=== PATIENT | male | born 1945 | race Caucasian/White ===

== ENCOUNTER 2016-12-16 07:00 | Inpatient (IN) | payer MEDICARE ==
[~2016-12-16] VITALS: Ht 170.2 cm; Wt 95.4 kg
[2017-02-07 15:04] VITALS: BMI 32.5
[2017-02-10] VITALS (25 sets, daily range): BP systolic 122–172; BP diastolic 55–87; PULSE 70–96; RESP 14–23; Ht 170.2 cm; Wt 95.4 kg
[2017-02-10] MEDS ORDERED: CEFAZOLIN 2 GM/50 ML (PMX) 50 ML IVPB SCH (06:30)
[2017-02-10 06:31] LABS: INR 1.01; PROTIME 13.3 Sec (12.2-14.2)
[2017-02-10 06:43] LABS: PARTIAL THROMBOPLASTIN TIME 23.8 Sec (25.0-35.0)
[2017-02-10] MEDS ORDERED: LIDOCAINE 2% (SDV) 5 ML INJ ONE (06:59)
[2017-02-10] MEDS ORDERED: MEPERIDINE 100 MG INJ ONE (06:59)
[2017-02-10] MEDS ORDERED: NEOSTIGMINE 3 MG/3 ML SYRINGE ONE ×2 (06:59→08:26)
[2017-02-10] MEDS ORDERED: SUCCINYLCHOLINE CHLORIDE 100 MG/5 ML SYG IV ONE (06:59)
[2017-02-10] MEDS ORDERED: PROPOFOL 20 ML ONE (06:59)
[2017-02-10] MEDS ORDERED: GLYCOPYRROLATE 0.4 MG INJ ONE ×3 (06:59→08:26)
[2017-02-10] MEDS ORDERED: ROCURONIUM 50 MG INJ ONE ×2 (06:59→08:26)
--- NOTE | 2017-02-10 07:02 | HPN ---
Date/Time of Note Date/Time of Note DATE: 02/10/17 TIME: 07:01 Interval H&P Admission Note Pt. seen H&P reviewed: No system changes CLAY LOZADA MD Feb 10, 2017 07:02
[2017-02-10] MEDS ORDERED: POLYMYXIN/BACITRACIN 1L IRRIG ONE (07:08)
[2017-02-10] MEDS ORDERED: BUPIVACAINE 0.25% (MPF) 10 ML 10 ML VIAL ONE (07:08)
[2017-02-10] MEDS ORDERED: THROMBIN 5000 UNIT VIAL ONE (07:08)
[2017-02-10] MEDS ORDERED: GELATIN SIZE 100 SPONGE ONE (07:08)
[2017-02-10] MEDS ORDERED: LANTUS (07:12)
[2017-02-10] MEDS ORDERED: APIX5TAB PO (07:12)
[2017-02-10] MEDS ORDERED: METO-429 PO (07:12)
[2017-02-10] MEDS ORDERED: AMLO-147 PO (07:12)
[2017-02-10] MEDS ORDERED: WARF4TAB52 PO (07:12)
[2017-02-10] MEDS ORDERED: METF1000 PO (07:12)
[2017-02-10] MEDS ORDERED: LISI20TA11 PO (07:12)
[2017-02-10] MEDS: LACTATED RINGER'S 1,000 ML IV SCH (07:19)
[2017-02-10] MEDS ORDERED: EPHEDrine SULFATE 50 MG/5 ML SYG ONE (07:41)
[2017-02-10] MEDS ORDERED: ONDANSETRON 4 MG INJ ONE (07:41)
[2017-02-10] MEDS ORDERED: MINERAL OIL LIGHT 10 ML VIAL ONE (08:20)
[2017-02-10] MEDS ORDERED: MEPERIDINE 25 MG INJ IV PRN (08:30)
[2017-02-10] MEDS ORDERED: FENTAnyl 50 MCG/ML VIAL IV PRN ×3 (08:30)
[2017-02-10] MEDS ORDERED: EPHEDrine SULFATE 50 MG/5 ML SYG IV PRN (08:30)
[2017-02-10] MEDS ORDERED: DIPHENHYDRAMINE 50 MG INJ IV PRN (08:30)
[2017-02-10] MEDS ORDERED: ONDANSETRON 4 MG INJ IV PRN ×2 (08:30→11:00)
[2017-02-10] MEDS ORDERED: MIDAZOLAM 1 MG/ML 2 ML INJ IV PRN (08:30)
[2017-02-10] MEDS ORDERED: HYDROmorphONE (0.2 MG/ML) 10ML SYG IV PRN ×2 (08:30)
[2017-02-10] MEDS ORDERED: OXYCODONE/ACETAMINOPHEN (5/325) TAB PO PRN ×2 (08:30)
[2017-02-10] MEDS ORDERED: METOCLOPRAMIDE 10 MG INJ IV PRN (08:30)
[2017-02-10] MEDS ORDERED: LABETALOL HCL 20MG INJ IV PRN (08:30)
--- NOTE | 2017-02-10 09:23 | RADRPT ---
PROCEDURE: Lumbar spine x-ray CLINICAL INDICATION: Lumbar laminectomy TECHNIQUE: A single lateral view of the lumbar spine was obtained. COMPARISON: None FINDINGS: There is normal osseous mineralization. Localizing needles are identified at the L3-4 and L5-S1 disk spaces posteriorly. There is no evidence of acute fracture. Disk spaces are preserved in the lumbar spine. There is 5 mm of anterolisthesis of L5 with respect S1 with narrowing of the L5-S1 neural foramina. IMPRESSION: 5 mm of anterolisthesis of L5 with respect to S1. Posterior localizing needles at L3-4 and L5-S1. Physician Pam Date Time Electronically viewed and signed by Physician Pam on 02/10/2017 09:22 RA/
--- NOTE | 2017-02-10 09:25 | RADRPT ---
PROCEDURE: Lumbar spine radiograph CLINICAL INDICATION: Lumbar laminectomy TECHNIQUE: A single lateral view of the lumbar spine was obtained. COMPARISON: Lumbar spine radiograph from 02/10/2017 at 07:44 hours FINDINGS: The patient is noted to be status post interval laminectomy at L3 - L5 with adjacent postsurgical ch anges including packing material. There is stable anterolisthesis of L5 with respect to S1 with narrowing of the L5-S1 neural foramina . There is normal osseous mineralization. There is no evidence of an acute fracture. IMPRESSION: Status post interval laminectomy at L3 - L5 with postsurgical changes. Stable anterolisthesis of L5 with respect to S1. Physician Pam Date Time Electronically viewed and signed by Physician Pam on 02/10/2017 09:25 /
[2017-02-10] MEDS ORDERED: NALOXONE (0.4 MG/ML) INJ ONE (10:33)
--- NOTE | 2017-02-10 10:57 | OPR ---
Date/Time of Note Date/Time of Note DATE: 02/10/17 TIME: 10:53 Operative Report Preoperative Diagnosis Lumbar spinal stenosis at L2-L3-L4 and L5 Herniated disc L4-5 on the right with extruded disc fragments Postoperative Diagnosis Same Operation/Procedure Performed Central decompressive laminectomy at L5 Central decompressive laminectomy at L4 Central decompressive laminectomy at L3 Central decompressive laminectomy at L2 Microdiscectomy L4-5 on the right Medial facetectomy and foraminotomy at L2-3 L3-4 L4-5 and L5-S1 bilaterally Cosmetic wound closure (14 cm) Lateral localizing lumbar radiographs (2) Intraoperative nerve monitoring (3.5 hours) Surgeon: CLAY LOZADA MD cashier assistant: LISSETT GILBERT Anesthesia Type: general Estimated Blood Loss: 150 - 200 ml's Transfusion Required: no Specimens Spinous processes of L2-L3-L4 and L5, Herniated disc L4-5 on the right Grafts/Implants: none Complications: no CLAY OLZADA MD Feb 10, 2017 10:57
[2017-02-10] MEDS ORDERED: NACL 0.9% 3 ML SYG IV SCH (11:00)
[2017-02-10] MEDS ORDERED: BETHANECHOL 25 MG TAB PO PRN (11:00)
[2017-02-10] MEDS ORDERED: ZOLPIDEM 5 MG TAB PO PRN (11:00)
[2017-02-10] MEDS ORDERED: DIAZEPAM 5 MG TAB PO PRN (11:00)
[2017-02-10] MEDS ORDERED: TRIMETHOBENZAMIDE 100 MG/ML VIAL IM PRN (11:00)
[2017-02-10] MEDS ORDERED: DIAZEPAM 5 MG/ML SYG IM PRN (11:00)
[2017-02-10] MEDS ORDERED: HYDROCODONE/APAP (5/325) TAB PO PRN (11:00)
[2017-02-10] MEDS ORDERED: DIPHENHYDRAMINE 50 MG CAP PO PRN (11:00)
[2017-02-10] MEDS ORDERED: AL HYDROX/MG HYDROX/SIMETH 30 ML CUP PO PRN (11:00)
[2017-02-10] MEDS ORDERED: PROCHLORPERAZINE 10 MG TAB PO PRN (11:00)
[2017-02-10] MEDS ORDERED: CEPASTAT LOZENGE MT PRN (11:00)
[2017-02-10] MEDS ORDERED: ACETAMINOPHEN 325 MG TAB PO PRN (11:00)
[2017-02-10] MEDS ORDERED: NALOXONE (0.4 MG/ML) INJ IV PRN (11:00)
[2017-02-10] MEDS ORDERED: HYDROmorphONE 0.2 MG/ML PCA IV SCH (11:00)
[2017-02-10] MEDS: CEFAZOLIN 1 GM/50 ML (PMX) 50 ML IVPB SCH ×3 (11:55→23:51)
[2017-02-10] MEDS: HYDROmorphONE (0.2 MG/ML) 10ML SYG IV PRN ×2 (11:56→12:30)
--- NOTE | 2017-02-10 12:12 | OPR ---
DATE OF OPERATION: 02/10/2017 PREOPERATIVE DIAGNOSES: 1. Lumbar spinal stenosis at L2, L3, L4 and L5. 2. Herniated disk L4-5 on the right with extruded disk fragments. POSTOPERATIVE DIAGNOSES: 1. Lumbar spinal stenosis at L2, L3, L4 and L5. 2. Herniated disk L4-5 on the right with extruded disk fragments. OPERATIVE PROCEDURE: 1. Central decompressive laminectomy, L2. 2. Central decompressive laminectomy, L3. 3. Central decompressive laminectomy, L4. 4. Central decompressive laminectomy, L5. 5. Microdiskectomy, L4-5 on the right. 6. Medial facetectomy and foraminotomy L2-3, L3-4, L4-5, L5-S1 bilaterally. 7. Cosmetic wound closure (14 cm). 8. Lateral localized lumbar radiographs (2). 9. Intraoperative nerve monitoring (3-1/2 hours). SURGEON: Brien Campbell MD PACKAGING INSPECTOR: Marci Tineo PA-C ANESTHESIA: General endotracheal. ANESTHESIOLOGIST: Jason Barrientos MD ESTIMATED BLOOD LOSS: 200 mL-none replaced. DRAINS: Two medium Hemovac drains employed. COMPLICATIONS: No complications. INDICATIONS: This is a 72-year-old male with persistent back and bilateral leg complaints, left greater than right, which have been unrelieved by extensive conservative management. He has undergone a number of diagnostic studies including an MRI of the lumbar spine which demonstrated multilevel spinal stenosis and a suspected disk herniation at L4-5 on the right. Treatment options discussed with the patient, he elected to proceed with surgery. OPERATION PERFORMED: With the patient in supine position after satisfactory induction of general endotracheal anesthesia by Dr. Earle Barrientos, the patient was turned to the prone kneeling position onto the [place] frame. All pressure points carefully padded. The back was prepped and draped usual sterile fashion. Athrombic pumps were applied to legs below the knees for venous stasis during and after procedure and indwelling Spencer catheter was also placed preoperatively to facilitate bladder drainage during and after the procedure. Two spinal needles placed next, between L2 and L5 spinous processes, lateral radiograph was taken which confirmed anatomical position. A 14 cm incision encountered midline from L2 to the sacrum through the skin and subcutaneous tissue to the deep fascia after skin was infiltrated with 0.25 percent Marcaine without epinephrine for postoperative analgesia. Superficial retractors were placed and hemostasis secured with electrocautery. Throughout the procedure copious antibacterial irrigation solution used to periodically irrigate the wound. The fascia incised in midline with a hot knife and a bilateral subperiosteal dissection carried out from L2 to the sacrum. Deep retractors were placed and deep hemostasis secured with electrocautery. A second intraoperative radiograph was taken with Mary clamps placed and was felt to be the spinous process of L2, L3, L4, and L5. This was confirmed with a second x-ray. A central decompressive laminectomy at L5, L4, L3 and L2 was then carried out using a Kaylen right angle bone rongeur, Leksell rongeur, Kerrison punches and curettes. The operating microscope was moved into place. A medial facetectomy foraminotomy was accomplished at L2-3, L3-4, L4-5, and L5-S1 bilaterally. At this point, attention was directed to the L4-5 level on the right where the L5 root was mobilized medially and protected with a nerve retractor using microdissection technique. This revealed a herniation of the L4-5 disk with some disk material above the level disk space underneath the posterior longitudinal ligament. A 15 blade knife used to cut a tiny window in the anulus and posterior longitudinal ligament. Multiple degenerative disk fragments were harvested with pituitary rongeur and sent lab for pathologic study. Additional fragments were harvested using Juanita curettes. At this point, an extrude disk fragment was identified above the level of the disk placed underneath the posterior longitudinal ligament. This was teased out of that location with the pituitary rongeur. The epidural hemostasis was secured with bipolar electrocautery on a low setting. The anesthesiologist then asked to perform a Valsalva maneuver 400 mmHg and no spinal fluid was noted. At the beginning of the surgery the baseline nerve testing revealed the L3 potentials were down 30 percent on the left, 20 percent on the right, 40 percent bilaterally and L4, 80 percent bilaterally at L5 and 10 percent bilaterally at S1. At the completion of the surgery the potentials were all equal except for the right L5 potential was down 20 percent, the left L5 potential was down 10 percent. The wound was then closed over 2 medium Hemovac drains; 1 below the fascia and 1 above the fascia using number 1 Stratafix suture in deep parietal musculature and deep fascia back, 2-0 Stratafix suture in the subcutaneous tissue, and a 4-0 Vicryl subcuticular cosmetic closing suture on the skin. Dermabond sterile compression dressings were applied. Patient having tolerated the procedure well was then turned to supine position on his bed and extubated by Dr. Earle Barrientos. He was transported to recovery in satisfactory condition. At the conclusion procedure, sponge, instrument and needle counts were all correct. NEED FOR BOX INSPECTOR: During this spinal surgical procedure, my assistant director was used to retract and protect the spinal nerves and dural sac. My assistant director also employed the suction catheters to evacuate blood from the surgical field to improve visualization of the neural structures. The assistant director was medically necessary to facilitate the completion of the surgery in a safe and expeditious manner. [facility] [place] regulations, as well as hospital bylaws, preclude the use of non- licensed health care personnel such as operating room technicians, to perform these functions. Throughout the procedure neuro monitoring was carried out by [employer] including EMG, SSEP and MEP monitoring of the L3, L4, L5 and S1 nerve roots bilaterally along with spinal cord potentials. These were interpreted by neurologist employed by [employer]. Dictated By: Brien Campbell MD /siomara/alexis /Document#: [id number] CC: Alex Vargas MD;*[facility]*
[2017-02-10] MEDS ORDERED: GLUCAGON 1 MG INJ IM PRN (13:30)
[2017-02-10] MEDS ORDERED: DEXTROSE 50% 50 ML SYRINGE IV PRN ×2 (13:30)
[2017-02-10] MEDS ORDERED: GLUCOSE GEL 15 GRAM TUBE BUCCAL PRN (13:30)
[2017-02-10] MEDS: LISINOPRIL 20 MG TAB PO SCH (13:30)
[2017-02-10] MEDS ORDERED: GLUCOSE GEL 15 GRAM TUBE PO PRN ×2 (13:30)
--- NOTE | 2017-02-10 14:50 | CONS ---
DATE OF ADMISSION: 02/10/2017 DATE OF CONSULTATION: 02/10/2017 POSTOPERATIVE INTERNAL MEDICINE/ENDOCRINE CONSULT: The patient had surgery with Dr. Brien Campbell, 02/10/2017. PHYSICIAN REQUESTING CONSULTATION: Dr. Brien Campbell for medical evaluation and medical followup of a 72-year-old gentleman with postop lumbar spine surgery with several medical problems. Thank you, Dr. Campbell for allowing us participate in the care this patient. HISTORY OF PRESENT ILLNESS: Drew Moreau is a 72-year-old gentleman with issues with his back predominantly spinal stenosis, as well as disc issue currently underwent laminectomy at levels 2 through 5, as well as a microdiskectomy at L4 and L5. The patient was seen in the recovery room and responding to questions quite appropriately. PAST MEDICAL HISTORY: Diabetes, hypertension and hyperlipidemia for which he is taking the following medications of lisinopril 20 mg a day, amlodipine 10 mg a day, metoprolol 50 mg b.i.d., metformin a 1000 mg b.i.d. He is also taking a generic equivalent of Eliquis and uses Lantus and Humalog insulin with sliding scales, usually averaging 30 of Toi Plus b.i.d. and Humalog before meals. Also with a sliding scale. ALLERGIES: ALLERGIC TO THE FOLLOWING MEDICATIONS PENICILLIN, CODEINE, AND SUDAFED. PAST SURGICAL HISTORY: Right carotid endarterectomy, splenectomy post trauma. Had radiation seeds put in for prostate cancer, had total shoulder replacement on the left. Also prior to that a torn rotator cuff surgery on the left side. Arthroscopic surgery for torn menisci left knee x2. He had a hernia repair. Has had some surgery on his foot. He has been hospitalized for a stroke and some other medical issues, which he does not recall at this particular point in time. SOCIAL HISTORY: The patient is and has 5 children and 11 grandchildren. He quit smoking 30 years ago. Alcohol socially. He is currently retired. FAMILY HISTORY: Positive for diabetes, heart, blood pressure and stroke. No cancer in any of his family members. REVIEW OF SYSTEMS: Other than as severe back pain at this point is noncontributory. PHYSICAL EXAMINATION: VITAL SIGNS: In the recovery were, pulse of 88, respirations 15, blood pressure 137/67, and O2 sat 97 percent on O2. GENERAL APPEARANCE: The patient was afebrile preop. HEENT: Was unremarkable. NECK: Veins were flat. Carotid pulses were palpable. LUNGS: Lungs were clear. HEART: Exam revealed a regular rhythm. No obvious murmurs being noted. ABDOMEN: Soft. Bowel sounds were noted, somewhat distended. EXTREMITIES: Unremarkable. IMPRESSION: 1. Status post lumbar spine surgery. 2. Diabetes mellitus type 2. 3. Hypertension. 4. Hyperlipidemia. 5. History of peripheral vascular disease. 6 Sleep apnea PLAN: Follow the patient with appropriate monitoring of his blood pressure, as well as his diabetes and will resume his preop medications. We will also resume insulin and somewhat of a modified dose. CONDITION: Condition postoperatively is stable. Thank you, Dr. Campbell for allowing us to participate in care of this pleasant patient. We will be more than happy to follow him along with you during his stay at [facility]. Dictated By: Alex Vargas MD /siomara/ori /Document#: [id number] PIPE
[2017-02-10] MEDS: DEXTROSE 5%-0.45% NACL 1,000 ML IV SCH ×2 (16:08→20:45)
[2017-02-10] MEDS: INSULIN ASPART [NOVOLOG] 3 ML PEN SC SCH ×2 (17:46→20:51)
[2017-02-10] MEDS ORDERED: INSULIN ASPART [NOVOLOG] 3 ML PEN SC SCH (17:55)
[2017-02-10] MEDS ORDERED: INSULIN GLARGINE [LANtus] 3 ML PEN SC SCH (20:00)
[2017-02-10] MEDS: RANITIDINE 150 MG TAB PO SCH (20:35)
[2017-02-10] MEDS: METOPROLOL 50 MG TAB PO SCH (20:35)
[2017-02-11] VITALS (7 sets, daily range): BP systolic 113–136; BP diastolic 62–67; PULSE 86–102; RESP 17–20
[2017-02-11] MEDS: ACCU-CHEK XX SCH (02:00)
[2017-02-11] MEDS ORDERED: ACCU-CHEK XX SCH (02:00)
[2017-02-11] MEDS: DEXTROSE 5%-0.45% NACL 1,000 ML IV SCH (04:32)
[2017-02-11 05:20] LABS: HEMATOCRIT 35.2 % (42.0-52.0); HEMOGLOBIN 11.5 g/dl (14.0-18.0)
[2017-02-11 05:43] LABS: CALCIUM 7.8 mg/dl (8.4-10.2); CREATININE 0.67 mg/dl (0.61-1.24); POTASSIUM 4.6 mmol/L (3.5-5.1)
[2017-02-11] MEDS: CEFAZOLIN 1 GM/50 ML (PMX) 50 ML IVPB SCH (05:46)
--- NOTE | 2017-02-11 07:04 | PN ---
Date/Time of Note Date/Time of Note DATE: 02/11/17 TIME: 07:03 Assessment/Plan Lines/Catheters IV Catheter Type (from Nrs): Peripheral IV Spencer in Place (from Nrs): Yes Subjective 24 Hr Interval Summary The patient is postop day #1 following a decompressive laminectomy from L2-L5 with microdiscectomy L4-5 on the right. He is resting comfortably in bed. A Spencer catheter is in place. His a.m. labs are unremarkable. Neurovascular structures are intact distally. His Hemovac output is 290 total. He will be mobilized as tolerated with physical therapy, and we will monitor his Hemovac output. Exam/Review of Systems Vital Signs Vitals Vital Signs Date Time Temp Pulse Resp B/P Pulse Ox O2 Delivery O2 Flow Rate FiO2 02/11/17 05:00 18 02/11/17 04:48 98.0 95 136/67 95 Nasal Cannula 2.0 02/11/17 00:21 40 Intake and Output 02/10/17 02/10/17 02/11/17 15:00 23:00 07:00 Intake Total 3600 ml 870 ml 1320 ml Output Total 870 ml 680 ml 1110 ml Balance 2730 ml 190 ml 210 ml Results Result Diagram: 02/11/17 0441 02/11/17 0441 CLAY LOZADA MD Feb 11, 2017 07:04
[2017-02-11] MEDS ORDERED: metFORMIN 500 MG TAB PO SCH (07:50)
[2017-02-11] MEDS: INSULIN ASPART [NOVOLOG] 3 ML PEN SC SCH ×6 (07:50→21:00)
[2017-02-11] MEDS ORDERED: BETHANECHOL 25 MG TAB PO PRN (08:00)
--- NOTE | 2017-02-11 08:20 | CONS ---
Date/Time of Note Date/Time of Note DATE: 02/11/17 TIME: 08:13 Consult Date/Type/Reason Admit Date/Time Feb 10, 2017 at 05:37 Initial Consult Date 02/10/2017 Type of Consultation: internal medicine/endocrine Reason for Consultation post op management of dmtype and general medical f/u Ordering Provider: CLAY LOZADA MD Subjective patient alert this am no particular complaints got out of bed last evening Objective Vital Signs Date Time Temp Pulse Resp B/P Pulse Ox O2 Delivery O2 Flow Rate FiO2 02/11/17 07:49 98.2 98 20 113/62 93 02/11/17 04:48 Nasal Cannula 2.0 02/11/17 00:21 40 Intake and Output 02/10/17 02/10/17 02/11/17 15:00 23:00 07:00 Intake Total 3600 ml 870 ml 1320 ml Output Total 870 ml 680 ml 1110 ml Balance 2730 ml 190 ml 210 ml Exam vss heent neg lungs clear heart reg. rhythm abd.soft Results/Medications Result Diagram: 02/11/17 0441 02/11/17 0441 Results 24 hrs Laboratory Tests Test 02/10/17 17:43 02/10/17 20:40 02/11/17 04:41 Bedside Glucose 102 102 Hemoglobin 11.5 L Hematocrit 35.2 L Sodium Level 131 L Potassium Level 4.6 Chloride Level 96 L Carbon Dioxide Level 31 Anion Gap 9 Blood Urea Nitrogen 10 Creatinine 0.67 Glucose Level 267 H Calcium Level 7.8 L Medications Current Medications Lactated Ringer's 1,000 ml @ 20 mls/hr Q24H IV Last administered on 02/10/17 07:19; Admin Dose 20 MLS/HR; Start 02/10/17 at 07:00 Dextrose/Sodium Chloride (D5-1/2ns) 1,000 ml @ 100 mls/hr Q10H IV Last administered on 02/11/17 04:32; Admin Dose 100 MLS/HR; Start 02/10/17 at 10:45 Acetaminophen/ Hydrocodone Bitart ([place] (5/325)) 1 tab Q4H PRN PO PAIN LEVEL 1 -5; Start 02/10/17 at 11:00 Acetaminophen/ Hydrocodone Bitart ([place] (5/325)) 2 tab Q4H PRN PO PAIN LEVEL 6 -10; Start 02/10/17 at 11:00 Zolpidem Tartrate (Ambien) 5 mg HS PRN PO INSOMNIA; Start 02/10/17 at 11:00 Prochlorperazine (Compazine) 10 mg Q4H PRN PO NAUSEA AND/OR VOMITING; Start at 11:00 Trimethobenzamide HCl (Tigan) 200 mg Q4H PRN IM NAUSEA AND/OR VOMITING; Start 02/10/17 at 11:00 Ondansetron HCl (Zofran Inj) 4 mg Q6H PRN IV NAUSEA AND/OR VOMITING; Start at 11:00 Al Hydrox/Mg Hydrox/Simethicone (Mag-Al Plus) 15 ml Q4H PRN PO CONSTIPATION; Start 02/10/17 at 11:00 Docusate Sodium (Colace) 100 mg BID PO ; Start 02/11/17 at 09:00 Acetaminophen (Tylenol Tab) 650 mg Q4H PRN PO TEMP GREATER THAN 101F OR FUENTES; Start 02/10/17 at 11:00 Ascorbic Acid (Vitamin C) 1,000 mg BID PO ; Start 02/11/17 at 09:00 Ferrous Sulfate (Ferrous Sulfate (Ec)) 325 mg TID PO ; Start 02/11/17 at 09:00 Ranitidine HCl (Zantac) 150 mg BID PO Last administered on 02/10/17 20:35; Admin Dose 150 MG; Start 02/10/17 at 21:00 Diazepam (Valium) 5 mg Q4H PRN PO MUSCLE SPASMS; Start 02/10/17 at 11:00 Diazepam (Valium) 5 mg Q4H PRN IM MUSCLE SPASMS; Start 02/10/17 at 11:00 Phenol (Cepastat Lozenge) 1 lozenge PRN PRN MT SORE THROAT; Start 02/10/17 at 11:00 Bethanechol Chloride (Urecholine) 25 mg PRN PRN PO UNABLE TO VOID; Start at 11:00 Diphenhydramine HCl (Benadryl) 50 mg Q6H PRN PO PRURITUS; Start 02/10/17 at 11: 00 Hydromorphone HCl (Dilaudid TRACK MOVING MACHINE OPERATOR) Q4PCA IV Last administered on 02/10/17 11:39 ; Admin Dose 6 MG; Start 02/10/17 at 11:00 Naloxone HCl (Narcan) 0.2 mg Q2M PRN IV RR 8 BREATHS/MIN OR LESS; Start at 11:00 Amlodipine Besylate (Norvasc) 5 mg DAILY PO ; Start 02/11/17 at 09:00 Lisinopril (Zestril) 20 mg DAILY PO ; Start 02/10/17 at 13:30 Metoprolol Tartrate (Lopressor) 50 mg BID PO Last administered on 02/10/17 20: 35; Admin Dose 50 MG; Start 02/10/17 at 21:00 Insulin Glargine (Lantus) 7 unit BID@08,20 SC Last administered on 02/10/17 20 :44; Admin Dose 7 UNIT; Start 02/10/17 at 20:00 Miscellaneous Information 1 ea NOTE XX ; Start 02/10/17 at 13:30 Glucose (Glutose) 15 gm Q15M PRN PO DECREASED GLUCOSE; Start 02/10/17 at 13:30 Glucose (Glutose) 22.5 gm Q15M PRN PO DECREASED GLUCOSE; Start 02/10/17 at 13: 30 Dextrose (D50w Syringe) 25 ml Q15M PRN IV DECREASED GLUCOSE; Start 02/10/17 at 13:30 Dextrose (D50w Syringe) 50 ml Q15M PRN IV DECREASED GLUCOSE; Start 02/10/17 at 13:30 Glucagon (Glucagen) 1 mg Q15M PRN IM DECREASED GLUCOSE; Start 02/10/17 at 13:30 Glucose (Glutose) 15 gm Q15M PRN BUCCAL DECREASED GLUCOSE; Start 02/10/17 at 13 :30 Diagnostic Test (Pha) (Accu-Chek) 1 ea 02 XX ; Start 02/11/17 at 02:00 Bethanechol Chloride (Urecholine) 25 mg PRN PRN PO UNABLE TO VOID; Start at 08:00 Assessment/Plan Chief Complaint/Hosp Course patient will be ambulating today glucose in 200 range this am will increase dose of insulin and monitor Problems: Additional Assessment/Plan plan will monitor more closely re diabetes and folloiw thank you [facility] AISHWARYA CASTILLO MD Feb 11, 2017 08:20
[2017-02-11] MEDS: RANITIDINE 150 MG TAB PO SCH ×2 (08:56→20:23)
[2017-02-11] MEDS: DOCUSATE SODIUM 100 MG CAP PO SCH ×2 (08:56→20:23)
[2017-02-11] MEDS: FERROUS SULFATE (EC) 325 MG TAB PO SCH ×3 (08:56→20:23)
[2017-02-11] MEDS: LISINOPRIL 20 MG TAB PO SCH (08:56)
[2017-02-11] MEDS: AMLODIPINE 5 MG TAB PO SCH (08:57)
[2017-02-11] MEDS: METOPROLOL 50 MG TAB PO SCH ×2 (08:57→20:23)
[2017-02-11] MEDS: ASCORBIC ACID 500 MG TAB PO SCH ×2 (08:58→20:23)
[2017-02-11] MEDS: LACTATED RINGER'S 1,000 ML IV SCH (09:00)
[2017-02-11] MEDS: metFORMIN 500 MG TAB PO SCH ×2 (09:16→18:01)
[2017-02-11] MEDS: HYDROCODONE/APAP (5/325) TAB PO PRN (10:07)
[2017-02-11] MEDS: INSULIN GLARGINE [LANtus] 3 ML PEN SC SCH (20:34)
[2017-02-12 00:02] VITALS: PULSE 96
[2017-02-12 00:32] LABS: ADD UMIC YES; UR ASCORBIC ACID NEGATIVE (NEGATIVE); UR BACTERIA FEW /HPF (NONE SEEN); UR BILIRUBIN (Dip) NEGATIVE (NEGATIVE); UR BLOOD (Dip) 3+ mg/dL (NEGATIVE); UR CLARITY CLEAR (CLEAR); UR COLOR YELLOW (YELLOW); UR GLUCOSE (Dip) NEGATIVE (NEGATIVE); UR KETONES (Dip) NEGATIVE (NEGATIVE); UR LEUKOCYTE ESTERASE (Dip) NEGATIVE Leu/ul (NEGATIVE); UR MUCUS FEW /HPF (NONE SEEN); UR NITRITE (Dip) NEGATIVE (NEGATIVE); UR RBC 42 /HPF (0-5); UR SPECIFIC GRAVITY (Dip) 1.012 (1.003-1.030); UR TOTAL PROTEIN (Dip) NEGATIVE (NEGATIVE); UR UROBILINOGEN (Dip) NEGATIVE (NEGATIVE)
[2017-02-12] MEDS: ACCU-CHEK XX SCH (01:45)
[2017-02-12 02:37] VITALS: BP 167/77; RESP 18
[2017-02-12] MEDS: HYDROCODONE/APAP (5/325) TAB PO PRN ×4 (03:33→18:33)
[2017-02-12 05:15] VITALS: BP 126/68; PULSE 91; RESP 18
--- NOTE | 2017-02-12 07:31 | PN ---
Date/Time of Note Date/Time of Note DATE: 02/12/17 TIME: 07:30 Assessment/Plan Lines/Catheters IV Catheter Type (from Nrsg): Saline Lock Spencer in Place (from Nrsg): No Subjective 24 Hr Interval Summary The patient is postop day #2 following a multilevel decompressive laminectomy with microdiscectomy L4-5 on the right. He is resting comfortably in bed. Neurovascular structures are intact distally. His Hemovac drainage is minimal and his Hemovac was discontinued. His wound is clean and dry and was redressed. I anticipate he will be discharged later today upon clearance by physical therapy. He was given strict discharge precautions and instructions as well as follow-up arrangements. Exam/Review of Systems Vital Signs Vitals Vital Signs Date Time Temp Pulse Resp B/P Pulse Ox O2 Delivery O2 Flow Rate FiO2 02/12/17 05:15 98.5 91 18 126/68 94 Nasal Cannula 02/12/17 00:30 3.0 02/12/17 00:02 40 Intake and Output 02/11/17 02/11/17 02/12/17 15:00 23:00 07:00 Intake Total 300 ml 800 ml 450 ml Output Total 75 ml 610 ml 702 ml Balance 225 ml 190 ml -252 ml Results Result Diagram: 02/11/17 0441 02/11/17 0441 CLAY LOZADA MD Feb 12, 2017 07:31
[2017-02-12] MEDS: INSULIN ASPART [NOVOLOG] 3 ML PEN SC SCH ×6 (07:50→18:33)
[2017-02-12 08:00] VITALS: BP 120/64; RESP 18
--- NOTE | 2017-02-12 08:03 | CONS ---
Date/Time of Note Date/Time of Note DATE: 02/12/17 TIME: 07:59 Consult Date/Type/Reason Admit Date/Time Feb 10, 2017 at 05:37 Initial Consult Date 02/10/2017 Type of Consultation: internal medicine/endocrine Reason for Consultation internal edicine f/u and management of dm Ordering Provider: CLAY LOZADA MD Subjective no particular complaints still appears sleepy this am Objective Vital Signs Date Time Temp Pulse Resp B/P Pulse Ox O2 Delivery O2 Flow Rate FiO2 02/12/17 05:15 98.5 91 18 126/68 94 Nasal Cannula 02/12/17 00:30 3.0 02/12/17 00:02 40 Intake and Output 02/11/17 02/11/17 02/12/17 15:00 23:00 07:00 Intake Total 300 ml 800 ml 450 ml Output Total 75 ml 610 ml 702 ml Balance 225 ml 190 ml -252 ml Exam vss heent neg lungs clear heart regular rhythm abd.soft Results/Medications Result Diagram: 02/11/1744002/11/17 0441 Results 24 hrs Laboratory Tests Test 02/11/17 08:41 02/11/17 09:33 02/11/17 12:42 02/11/17 17:52 Bedside Glucose 125 128 121 Urine Color YELLOW Urine Clarity CLEAR Urine pH 6.0 Urine Specific [place] 1.012 Urine Ketones NEGATIVE Urine Nitrite NEGATIVE Urine Bilirubin NEGATIVE Urine Urobilinogen NEGATIVE Urine Leukocyte Esterase NEGATIVE Urine Microscopic RBC 42 H Urine Microscopic WBC 7 H Urine Bacteria FEW A Urine Mucus FEW A Urine Hemoglobin 3+ H Urine Glucose NEGATIVE Urine Total Protein NEGATIVE Test 02/11/17 20:19 Bedside Glucose 117 Medications Current Medications Acetaminophen/ Hydrocodone Bitart ([place] (5/325)) 1 tab Q4H PRN PO PAIN LEVEL 1 -5 Last administered on 02/11/17 15:47; Admin Dose 1 TAB; Start 02/10/17 at 11: 00 Acetaminophen/ Hydrocodone Bitart ([place] (5/325)) 2 tab Q4H PRN PO PAIN LEVEL 6 -10 Last administered on 02/12/17 03:33; Admin Dose 2 TAB; Start 02/10/17 at 11 :00 Zolpidem Tartrate (Ambien) 5 mg HS PRN PO INSOMNIA; Start 02/10/17 at 11:00 Prochlorperazine (Compazine) 10 mg Q4H PRN PO NAUSEA AND/OR VOMITING; Start at 11:00 Trimethobenzamide HCl (Tigan) 200 mg Q4H PRN IM NAUSEA AND/OR VOMITING; Start 02/10/17 at 11:00 Ondansetron HCl (Zofran Inj) 4 mg Q6H PRN IV NAUSEA AND/OR VOMITING; Start at 11:00 Al Hydrox/Mg Hydrox/Simethicone (Mag-Al Plus) 15 ml Q4H PRN PO CONSTIPATION; Start 02/10/17 at 11:00 Docusate Sodium (Colace) 100 mg BID PO Last administered on 02/11/17 20:23; Admin Dose 100 MG; Start 02/11/17 at 09:00 Acetaminophen (Tylenol Tab) 650 mg Q4H PRN PO TEMP GREATER THAN 101F OR FUENTES; Start 02/10/17 at 11:00 Ascorbic Acid (Vitamin C) 1,000 mg BID PO Last administered on 02/11/17 20:23 ; Admin Dose 1,000 MG; Start 02/11/17 at 09:00 Ferrous Sulfate (Ferrous Sulfate (Ec)) 325 mg TID PO Last administered on 20:23; Admin Dose 325 MG; Start 02/11/17 at 09:00 Ranitidine HCl (Zantac) 150 mg BID PO Last administered on 02/11/17 20:23; Admin Dose 150 MG; Start 02/10/17 at 21:00 Diazepam (Valium) 5 mg Q4H PRN PO MUSCLE SPASMS; Start 02/10/17 at 11:00 Diazepam (Valium) 5 mg Q4H PRN IM MUSCLE SPASMS; Start 02/10/17 at 11:00 Phenol (Cepastat Lozenge) 1 lozenge PRN PRN MT SORE THROAT; Start 02/10/17 at 11:00 Bethanechol Chloride (Urecholine) 25 mg PRN PRN PO UNABLE TO VOID Last administered on 02/11/17 09:45; Admin Dose 25 MG; Start 02/10/17 at 11:00 Diphenhydramine HCl (Benadryl) 50 mg Q6H PRN PO PRURITUS; Start 02/10/17 at 11: 00 Hydromorphone HCl (Dilaudid RUG TOUCH UP PAINTER) Q4PCA IV Last administered on 02/10/17 11:39 ; Admin Dose 6 MG; Start 02/10/17 at 11:00 Naloxone HCl (Narcan) 0.2 mg Q2M PRN IV RR 8 BREATHS/MIN OR LESS; Start at 11:00 Amlodipine Besylate (Norvasc) 5 mg DAILY PO Last administered on 02/11/17 08: 57; Admin Dose 5 MG; Start 02/11/17 at 09:00 Lisinopril (Zestril) 20 mg DAILY PO Last administered on 02/11/17 08:56; Admin Dose 20 MG; Start 02/10/17 at 13:30 Metoprolol Tartrate (Lopressor) 50 mg BID PO Last administered on 02/11/17 20: 23; Admin Dose 50 MG; Start 02/10/17 at 21:00 Miscellaneous Information 1 ea NOTE XX ; Start 02/10/17 at 13:30 Glucose (Glutose) 15 gm Q15M PRN PO DECREASED GLUCOSE; Start 02/10/17 at 13:30 Glucose (Glutose) 22.5 gm Q15M PRN PO DECREASED GLUCOSE; Start 02/10/17 at 13: 30 Dextrose (D50w Syringe) 25 ml Q15M PRN IV DECREASED GLUCOSE; Start 02/10/17 at 13:30 Dextrose (D50w Syringe) 50 ml Q15M PRN IV DECREASED GLUCOSE; Start 02/10/17 at 13:30 Glucagon (Glucagen) 1 mg Q15M PRN IM DECREASED GLUCOSE; Start 02/10/17 at 13:30 Glucose (Glutose) 15 gm Q15M PRN BUCCAL DECREASED GLUCOSE; Start 02/10/17 at 13 :30 Diagnostic Test (Pha) (Accu-Chek) 1 ea 02 XX ; Start 02/11/17 at 02:00 Bethanechol Chloride (Urecholine) 25 mg PRN PRN PO UNABLE TO VOID; Start at 08:00 Insulin Glargine (Lantus) 20 unit BID@08,20 SC Last administered on 02/11/17 20:34; Admin Dose 20 UNIT; Start 02/11/17 at 20:00; Stop 02/16/17 at 19:59 Assessment/Plan Chief Complaint/Hosp Course patient will be ambulating today glucose in 200 range this am will increase dose of insulin and monitor Problems: Additional Assessment/Plan patients diabetes under good control yesterday.will be ambulating with physical therapy today--management per dr cody CASTILLO,AISHWARYA SANON Feb 12, 2017 08:03
[2017-02-12] MEDS: AMLODIPINE 5 MG TAB PO SCH (09:12)
[2017-02-12] MEDS: DOCUSATE SODIUM 100 MG CAP PO SCH (09:12)
[2017-02-12] MEDS: LISINOPRIL 20 MG TAB PO SCH (09:12)
[2017-02-12] MEDS: METOPROLOL 50 MG TAB PO SCH (09:12)
[2017-02-12] MEDS: RANITIDINE 150 MG TAB PO SCH (09:12)
[2017-02-12] MEDS: metFORMIN 500 MG TAB PO SCH ×2 (09:13→18:33)
[2017-02-12] MEDS: FERROUS SULFATE (EC) 325 MG TAB PO SCH ×2 (09:13→13:49)
[2017-02-12] MEDS: ASCORBIC ACID 500 MG TAB PO SCH (09:13)
[2017-02-12] MEDS: INSULIN GLARGINE [LANtus] 3 ML PEN SC SCH (09:16)
[2017-02-12 14:00] VITALS: BP 131/60; RESP 1
[2017-02-12] MEDS ORDERED: TAMSULOSIN (SR) 0.4 MG CAP PO SCH (14:30)
== END 2017-02-12 20:36 | disposition home or self-care (01) | DRG 520 ==
LOC: EDSTATUS 07:00 → REC 02-10 05:37 → MS1 02-10 13:27
PROVIDERS: ADMIT Orthopaedic Surgery; ATTEND Orthopaedic Surgery
PROC: 01NB0ZZ Release Lumbar Nerve, Open Approach (ICD-10-PCS; 2017-02-10)
PROC: 0SB20ZZ Excision of Lumbar Vertebral Disc, Open Approach (ICD-10-PCS; principal; 2017-02-10 07:00)
DX: M51.26 Other intervertebral disc displacement, lumbar region (principal); E11.51 Type 2 diabetes mellitus with diabetic peripheral angiopathy without gangrene; C61 Malignant neoplasm of prostate; J45.909 Unspecified asthma, uncomplicated; F32.9 Major depressive disorder, single episode, unspecified; M48.06 Spinal stenosis, lumbar region; E78.00 Pure hypercholesterolemia, unspecified; I10 Essential (primary) hypertension; Z79.4 Long term (current) use of insulin; Z79.01 Long term (current) use of anticoagulants; Z88.0 Allergy status to penicillin; Z96.612 Presence of left artificial shoulder joint; Z86.73 Personal history of transient ischemic attack (TIA), and cerebral infarction without residual deficits; Z87.891 Personal history of nicotine dependence
CPT/HCPCS: 72020; 80048; 81001; 82962; 83036; 85014; 85018; 85610; 85730; 86850; 86900; 86901; 86920; 87086; 88304; 88311; 94660; 97116; 97162; 97530; J0690; J1170; J1815; J2175; J2310; J2405; J2710; J3010; J7042; J7120; J7999